=== PATIENT | male | born 1950 | race Caucasian/White ===

== ENCOUNTER 2019-06-17 06:45 | Day surgery (SDC) | payer MEDICARE, BC ==
[2019-06-17] MEDS ORDERED: IRR STERIL WATER FOR IRR 1000 ML BOTTLE IR ONE ×2 (06:46)
[2019-06-17] MEDS ORDERED: PROPOFOL 200 MG/20 ML BOTTLE IV ONE (06:46)
== END 2019-06-17 10:35 | disposition home or self-care (01) ==
LOC: DS 06:45
PROVIDERS: ATTEND Surgery
DX: K63.89 Other specified diseases of intestine (principal); K29.71 Gastritis, unspecified, with bleeding; K44.9 Diaphragmatic hernia without obstruction or gangrene; K64.8 Other hemorrhoids; I10 Essential (primary) hypertension; I25.10 Atherosclerotic heart disease of native coronary artery without angina pectoris; E78.00 Pure hypercholesterolemia, unspecified; E66.9 Obesity, unspecified; I25.2 Old myocardial infarction; F15.90 Other stimulant use, unspecified, uncomplicated; Z79.82 Long term (current) use of aspirin; Z79.899 Other long term (current) drug therapy; Z87.891 Personal history of nicotine dependence; Z85.038 Personal history of other malignant neoplasm of large intestine; Z72.89 Other problems related to lifestyle; Z98.890 Other specified postprocedural states
CPT/HCPCS: 43239; 45380; J7120; 88342; A4217; A4663; J3490